=== PATIENT | female | born 1950 | race African-American/Black ===

== ENCOUNTER → 2017-02-19 | Outpatient (CLI) | payer OTHER ==
[2014-02-12 20:43] VITALS: BP 175/84
--- NOTE | 2017-02-19 16:23 | RAD ---
INDICATION: Low back pain and left leg radiculopathy for 2 years. TECHNIQUE: Sagittal T1, sagittal T2, sagittal STIR, axial T1, and axial T2 sequences are provided. No comparison is available. FINDINGS: There is 4 mm of anterolisthesis at L4-L5. There is endplate edema at L4-L5, with narrowing of the interspace at this level and at L5-S1. There is disc desiccation from L3-L4 through L5-S1. There is no worrisome marrow lesion. The conus medullaris is normal in signal intensity and in position. Subcentimeter probable cyst in the left kidney is noted. The numbering system assumes 5 lumbar type vertebral bodies. Findings by individual level are as follows: L1-L2: There is no canal or foraminal compromise. L2-L3: Minimal disc bulge and facet hypertrophy are noted without canal or foraminal compromise. L3-L4: There is a diffuse disc bulge and mild facet and ligamentum flavum hypertrophy. There is mild canal stenosis. There is mild to moderate left and mild right foraminal narrowing. L4-L5: In addition to the anterolisthesis there is a diffuse disc bulge and there is a left paracentral protrusion measuring 11 mm at its base and 5 mm in height. There is facet hypertrophy. There is ligamentum flavum hypertrophy. There is fluid in the facet joints. There is moderate to severe canal stenosis, midline AP diameter of the thecal sac is 5 mm. There is lateral recess narrowing bilaterally but greater on the left. Foraminal narrowing is [id number]. L5-S1: Disc osteophyte complex and facet hypertrophy are noted. There is moderate foraminal narrowing. IMPRESSION: Degenerative changes in the lumbar spine are greatest at L4-L5 where there is moderate to severe canal stenosis. Electronically signed by: Sanju Senra MD (02/19/2017 4:20 PM) [id number]
== END | disposition home or self-care (01) ==
LOC: MRI 14:15
PROVIDERS: ATTEND Family Medicine
DX: M47.896 Other spondylosis, lumbar region (principal); M48.06 Spinal stenosis, lumbar region
CPT/HCPCS: 72148